=== PATIENT | male | born 1965 | race Caucasian/White ===

== ENCOUNTER 2016-08-27 16:54 | Emergency (ER) | payer OTHER ==
[2016-08-27 17:07] VITALS: RESP 18; TEMP 97.9
--- NOTE | 2016-08-27 17:39 | EDPHY ---
H & P Time Seen by Provider: 08/27/16 17:23 HPI/ROS: CHIEF COMPLAINT: Right knee pain HISTORY OF PRESENT ILLNESS: Patient is a 51-year-old male who injured his right knee while skiing yesterday. The patient states he was skiing moles and stop to rest. He leaned over to his side. He felt a pop on the lateral aspect of his right knee. He had moderate pain. He was able to ski the rest of the day. Today he has increased pain with movement of his right knee. He also noticed significant swelling on the superior medial aspect of his right knee. He has no numbness or tingling. No previous knee surgery. REVIEW OF SYSTEMS: My complete review of systems is negative except as mentioned in the HPI. Past Medical/Surgical History: GERD, Celiac DZ Smoking Status: Never smoked Physical Exam: General Appearance: Alert and no distress. Head: Pupils equal. Normal. Respiratory: No respiratory distress. Cardiac: regular rate and rhythm. Extremities: patient has swelling and and a superior medial aspect of his right knee. There is no patellar tenderness or deformity. Patient has tenderness to palpation on the lateral aspect of his right knee. Patient has discomfort with stress of his lateral collateral ligament. There is mild laxity. No ACL or PCL laxity. Neurovascularly intact distally Skin: No rashes or lesions. Neuro: Alert. Normal mood and affect. Constitutional: Initial Vital Signs Temperature (C) 36.6 C 08/27/16 17:05 Heart Rate 82 08/27/16 17:05 Respiratory Rate 18 08/27/16 17:05 Blood Pressure 121/95 H 08/27/16 17:05 O2 Sat (%) 96 08/27/16 17:05 O2 Delivery Mode Room Air Allergies/Adverse Reactions: cefuroxime axetil [From Ceftin] Allergy (Verified 08/27/16 17:07) sulfamethoxazole [From Bactrim] Allergy (Verified 08/27/16 17:07) trimethoprim [From Bactrim] Allergy (Verified 08/27/16 17:07) Home Medications: Medication Instructions Recorded Hydrocodone/APAP 5/325 [[place] 1 - 2 tab PO Q4 #13 tab 08/27/16 5/325 (RX)] Ondansetron HCl [Zofran] 4 mg PO 08/27/16 Potassium 99 mg PO 08/27/16 Medical Decision Making ED Course/Re-evaluation: I discussed the plan with the patient. I discussed possible etiologies and answered all his questions. An x-ray was ordered. The x-ray: Effusion. No fracture dislocation. I discussed the result with the patient. I answered all his questions. He is placed in a knee immobilizer. He was given crutches. He will be nonweightbearing until follow-up with Orthopedics. He will follow up with Orthopedics when he returns home to [place]. Differential Diagnosis: My differential includes but is not limited to fracture, dislocation, sprain, ligamentous disruption Departure - Departure Disposition: Home, Routine, Self-Care Clinical Impression: Right knee sprain Qualifiers: Encounter type: initial encounter Involved ligament of knee: lateral collateral ligament Qualified Code(s): S83.421A - Sprain of lateral collateral ligament of right knee, initial encounter Condition: Good Instructions: Knee Sprain (ED), Knee Immobilizer (ED) Additional Instructions: Your x-ray show no fracture dislocation. You to have an effusion. You need close follow-up with Orthopedics when he returns home. Referrals: [facility] [Other] - As per [facility]ructions [facility] [place] [Other] - 5-7 days, call for appt. Prescriptions: Hydrocodone/APAP 5/325 [[place] 5/325 (RX)] 1 - 2 tab PO Q4 #13 tab
[2016-08-27] MEDS ORDERED: HYDROCOD/APAP 5/325 PREPACK#6 BTL TAKEHOME ONE ×2 (19:15)
[2016-08-27 19:25] VITALS: BP 140/85; PULSE 80; O2SAT 95
== END 2016-08-27 19:26 | disposition home or self-care (01) ==
DX: S83.421A Sprain of lateral collateral ligament of right knee, initial encounter (principal); V00.328A Other snow-ski accident, initial encounter; Y99.8 Other external cause status; Y93.23 Activity, snow (alpine) (downhill) skiing, snowboarding, sledding, tobogganing and snow tubing
CPT/HCPCS: L1830

== ENCOUNTER 2017-10-03 14:56 | Inpatient (IN) | payer MEDICAID, OTHER ==
--- NOTE | 2017-10-03 14:59 | EDPHY ---
H & P Time Seen by Provider: 10/03/17 14:57 HPI/ROS: CHIEF COMPLAINT: Abdominal pain and vomiting HISTORY OF PRESENT ILLNESS: The patient presents to the ED by EMS with acute abdominal pain and vomiting. The patient complains of pain in the left lower quadrant. He reports a prior history of similar symptoms with diverticulitis. His last bout was 2 years ago. The patient denies any hematemesis or melena. He denies prior surgical history. The patient denies any fever, cough, congestion, hematuria or dysuria. The patient reports that his pain is moderate in nature. The patient tells me he has had chronic vomiting before in the past. He tells me that he had been abstinent from using marijuana. He reports that it did not appear to change the frequency of his chronic vomiting. The patient is somewhat vague regarding his recent hospitalizations for vomiting. He states that he continues to have vomiting every few months. REVIEW OF SYSTEMS: A comprehensive 10 point review of systems is otherwise negative aside from elements mentioned in the history of present illness. Source: Patient Exam Limitations: No limitations - Medical/Surgical History Hx Asthma: Yes Hx Chronic Respiratory Disease: No Hx Diabetes: No Hx Cardiac Disease: No Hx Renal Disease: No Hx Cirrhosis: No Hx Alcoholism: No Hx HIV/AIDS: No Hx Splenectomy or Spleen Trauma: No Other PMH: GERD, CELIAC DX - Social History Smoking Status: Never smoked - Physical Exam Exam: General Appearance: Alert, appears uncomfortable Eyes: Pupils equal and round no pallor or injection ENT, Mouth: Mucous membranes moist Respiratory: There are no retractions, lungs are clear to auscultation Cardiovascular: Regular rate and rhythm Gastrointestinal: Tenderness to palpation left lower quadrant Neurological: 5/5 strength all 4 extremities Skin: Warm and dry, no rashes Musculoskeletal: Neck is supple nontender Extremities: symmetrical, full range of motion Constitutional: Initial Vital Signs Temperature (C) 36.4 C 10/03/17 14:57 Heart Rate 81 10/03/17 14:57 Respiratory Rate 18 10/03/17 14:57 Blood Pressure 134/90 H 10/03/17 14:57 O2 Sat (%) 95 10/03/17 14:57 O2 Delivery Mode Room Air Allergies/Adverse Reactions: bee venom protein (honey bee) Allergy (Unverified 10/03/17 14:57) cefuroxime [From Ceftin] Allergy (Unverified 10/03/17 14:57) cefuroxime axetil [From Ceftin] Allergy (Verified 08/27/16 17:07) sulfamethoxazole [From Bactrim] Allergy (Verified 08/27/16 17:07) trimethoprim [From Bactrim] Allergy (Verified 08/27/16 17:07) Home Medications: Medication Instructions Recorded Hydrocodone/APAP 5/325 [[place] 1 - 2 tab PO Q4 #13 tab 08/27/16 5/325 (RX)] Ondansetron HCl [Zofran] 4 mg PO 08/27/16 Potassium 99 mg PO 08/27/16 Lexapro 10/03/17 Seroquel 10/03/17 Medical Decision Making - Diagnostics Imaging Results: Imaging Impressions Abdomen CT 10/03/17 15:49 Impression: 1. Mild colonic diverticulosis, with no CT evidence of diverticulitis, pericolonic fluid collection, mechanical obstruction, or pneumatosis. 2. Small central sliding hiatal hernia. 3. Mild hepatomegaly with accompanying steatosis. Findings were discussed with Job Lawson MD at 16:27, on 10/03/2017. ED Course/Re-evaluation: The patient presents to the ED with complaints of acute abdominal pain and vomiting. The patient reports his consistent with his prior episodes of diverticulitis. The patient had an IV established. He received 2 L of normal saline. He received IV Zofran and pain medications. The patient was noted to have a slight leukocytosis. Given his tenderness he was taken for an abdominal CT scan which demonstrates no evidence of obvious pathology. The patient underwent serial examinations over 4.5 hr period. At 7:30 p.m. He is feeling somewhat better however is having recurrent abdominal pain and nausea after drinking just water. This point time I do feel the patient should be admitted to the hospital for observation this evening. Consultation is made with Dr. Reno from the hospitalist service. The patient developed recurrent vomiting at 8:00 p.m.. He is given additional Ativan and Zofran. I am certainly suspicious that this may be more of a chronic cyclic vomiting. Given the patient's ongoing symptoms I do feel he needs to be admitted to the hospital. Differential Diagnosis: Differential diagnosis considered includes pancreatitis, cholecystitis, perforation, obstruction, dehydration, diverticulitis, metabolic abnormality - Data Points Laboratory Results: Laboratory Results 10/03/17 15:00 10/03/17 15:00 10/03/17 10/03/17 15:00 15:00 WBC 11.67 10^3/uL H 10^3/uL (3.80-9.50) RBC 4.96 10^6/uL 10^6/uL (4.40-6.38) Hgb 16.3 g/dL g/dL (13.7-17.5) Hct 45.9 % % (40.0-51.0) MCV 92.5 fL fL (81.5-99.8) MCH 32.9 pg pg (27.9-34.1) MCHC 35.5 g/dL g/dL (32.4-36.7) RDW 12.7 % % (11.5-15.2) Plt Count 242 10^3/uL 10^3/uL (150-400) MPV 10.2 fL fL (8.7-11.7) Neut % (Auto) 89.2 % H % (39.3-74.2) Lymph % (Auto) 6.5 % L % (15.0-45.0) [place] % (Auto) 3.5 % L % (4.5-13.0) Eos % (Auto) 0.0 % L % (0.6-7.6) Baso % (Auto) 0.3 % % (0.3-1.7) Nucleat RBC Rel Count 0.0 % % (0.0-0.2) Absolute Neuts (auto) 10.40 10^3/uL H 10^3/uL (1.70-6.50) Absolute Lymphs (auto) 0.76 10^3/uL L 10^3/uL (1.00-3.00) Absolute Monos (auto) 0.41 10^3/uL 10^3/uL (0.30-0.80) Absolute Eos (auto) 0.00 10^3/uL L 10^3/uL (0.03-0.40) Absolute Basos (auto) 0.04 10^3/uL 10^3/uL (0.02-0.10) Absolute Nucleated RBC 0.00 10^3/uL 10^3/uL (0-0.01) Immature Gran % 0.5 % % (0.0-1.1) Immature Gran # 0.06 10^3/uL 10^3/uL (0.00-0.10) Sodium 143 mEq/L mEq/L (135-145) Potassium 3.7 mEq/L mEq/L (3.5-5.2) Chloride 106 mEq/L mEq/L (97-110) Carbon Dioxide 18 mEq/l L mEq/l (22-31) Anion Gap 19 mEq/L H mEq/L (8-16) BUN 11 mg/dL mg/dL (7-23) Creatinine 1.0 mg/dL mg/dL (0.7-1.3) Estimated GFR > 60 Glucose 135 mg/dL H mg/dL (70-100) Calcium 9.5 mg/dL mg/dL (8.5-10.4) Total Bilirubin 0.8 mg/dL mg/dL (0.1-1.4) Conjugated Bilirubin 0.4 mg/dL mg/dL (0.0-0.5) Unconjugated Bilirubin 0.4 mg/dL mg/dL (0.0-1.1) AST 28 IU/L IU/L (17-59) ALT 41 IU/L IU/L (21-72) Alkaline Phosphatase 156 IU/L H IU/L (38-126) Total Protein 7.7 g/dL g/dL (6.3-8.2) Albumin 4.5 g/dL g/dL (3.5-5.0) Lipase 58 IU/L IU/L (23-300) Medications Given: Discontinued Medications Fentanyl (Sublimaze) 100 mcg IVP EDNOW ONE Stop: 10/03/17 15:11 Last Admin: 10/03/17 15:26 Dose: 100 mcg Sodium Chloride (Ns) 1,000 mls @ 0 mls/hr IV EDNOW ONE; Wide Open PRN Reason: Protocol Stop: 10/03/17 15:11 Last Admin: 10/03/17 15:25 Dose: 1,000 mls Sodium Chloride (Ns) 1,000 mls @ 0 mls/hr IV EDNOW ONE; Wide Open PRN Reason: Protocol Stop: 10/03/17 19:49 Last Admin: 10/03/17 20:02 Dose: 1,000 mls Lorazepam (Ativan Injection) 1 mg IVP EDNOW ONE Stop: 10/03/17 19:49 Last Admin: 10/03/17 19:59 Dose: 1 mg Ondansetron HCl (Zofran) 4 mg IVP EDNOW ONE Stop: 10/03/17 15:11 Last Admin: 10/03/17 15:26 Dose: 4 mg Ondansetron HCl (Zofran) 4 mg IVP EDNOW ONE Stop: 10/03/17 19:49 Last Admin: 10/03/17 19:59 Dose: 4 mg Departure - Departure Disposition: [facility] Clinical Impression: Vomiting, Dehydration, Cyclic vomiting syndrome Condition: Good
[2017-10-03] MEDS ORDERED: fentaNYL 100 MCG/2 ML INJ IVP ONE (15:10)
[2017-10-03] MEDS ORDERED: ONDANSETRON 4 MG/2 ML VIAL IVP ONE ×2 (15:10→19:48)
[2017-10-03] MEDS ORDERED: NS 1,000 ML IV ONE ×2 (15:10→19:48)
[2017-10-03 15:20] LABS: PLATELET COUNT 242 10^3/uL (150-400)
[2017-10-03] MEDS ORDERED: IOPAMIDOL (ISOVUE-300) 100 ML BTL ONE (15:53)
[2017-10-03] MEDS ORDERED: LORazepam 2 MG/ML INJ IVP ONE (19:48)
[2017-10-03] MEDS ORDERED: PROMETHAZINE HCL 25 MG TAB PO PRN (20:49)
[2017-10-03] MEDS ORDERED: LORazepam 0.5 MG TAB PO PRN (20:49)
[2017-10-03] MEDS ORDERED: PROMETHAZINE HCL 25 MG/ML INJ IVP PRN (20:49)
--- NOTE | 2017-10-03 21:54 | PDGENHP ---
History and Physical - Chief Complaint Acute abdominal pain - History of Present Illness Primary care provider: None HPI: 52-year-old male presenting with acute abdominal pain characterized as very similar symptoms to what he experienced approximately 2 years ago when he had intractable abdominal pain with associated vomiting. Location is diffusely throughout his abdomen. The patient reports that symptom onset was 11:00 a.m., 2 days prior, and duration has been persistent and worsening thereafter. Has been associated with vomiting and has resulted in inability to tolerate oral intake. Pain has been somewhat alleviated by the pain and antiemetic medications he received in the emergency department. He is currently experiencing thirst and would like to trial some oral liquids. History Information - Allergies/Home Medication List Allergies/Adverse Reactions: cefuroxime [From Ceftin] Allergy (Severe, Unverified 10/03/17 20:43) Anaphylaxis bee venom protein (honey bee) Allergy (Unverified 10/03/17 14:57) cefuroxime axetil [From Ceftin] Allergy (Verified 10/03/17 20:43) sulfamethoxazole [From Bactrim] Allergy (Verified 10/03/17 20:43) trimethoprim [From Bactrim] Allergy (Verified 10/03/17 20:43) Home Medications: Escitalopram Oxalate [Lexapro] 20 mg PO DAILY 10/03/17 [Last Taken 10/03/17] Herbals/Supplements -Info Only 1 ea PO DAILY 10/03/17 [Last Taken Unknown] QUEtiapine FUMARATE [Seroquel 100 mg (*)] 100 mg PO HS 10/03/17 [Last Taken 09/16] I have personally reviewed and updated: family history, medical history, social history, surgical history - Past Medical History Additional medical history: Gastroesophageal reflux disease. Reported celiac disease, unclear how the diagnosis was reached. Chronic abdominal pain symptoms , of unclear etiology, patient reports symptoms persisted despite discontinuing marijuana for 2 months - Surgical History Additional surgical history: Inguinal hernia repair. Last colonoscopy 4 years ago with polyp removal - Family History Additional family history: Father with reported celiac disease - Social History Smoking Status: Never smoked Alcohol Use: Rarely Drug Use: Marijuana (Regularly) Additional social history: Patient reports he is currently relocating to [place] , historically from [place] Review of Systems Review of Systems: ROS: 10pt was reviewed & negative except for what was stated in HPI & below Gastrointestinal: Reports: vomitting, abdominal pain Physical Exam Physical Exam: Temp Pulse Resp BP Pulse Ox 36.6 C 83 18 145/96 H 92 10/03/17 20:46 10/03/17 20:46 10/03/17 20:46 10/03/17 20:46 10/03/17 20:46 Constitutional: no apparent distress, appears nourished, not in pain, other ( Resting very comfortably), No uncomfortable Eyes: PERRL, anicteric sclera, EOMI Ears, Nose, Mouth, Throat: moist mucous membranes, hearing normal, ears appear normal, no oral mucosal ulcers Cardiovascular: regular rate and rhythym, no murmur, rub, or gallop, No edema Respiratory: no respiratory distress, no rales or rhonchi, clear to auscultation Gastrointestinal: normoactive bowel sounds, soft, non-tender abdomen, no palpable masses, No distension Genitourinary: no bladder fullness, no bladder tenderness Neurologic: AAOx3, sensation intact bilaterally, other (Lethargic but arousable to tactile stimulation), No weakness Psychiatric: interacting appropriately, not anxious, not encephalopathic, thought process linear, other Lab Data & Imaging Review 10/03/17 15:00 10/03/17 15:00 WBC 11.67 10^3/uL (3.80-9.50) H 10/03/17 15:00 RBC 4.96 10^6/uL (4.40-6.38) 10/03/17 15:00 Hgb 16.3 g/dL (13.7-17.5) 10/03/17 15:00 Hct 45.9 % (40.0-51.0) 10/03/17 15:00 MCV 92.5 fL (81.5-99.8) 10/03/17 15:00 MCH 32.9 pg (27.9-34.1) 10/03/17 15:00 MCHC 35.5 g/dL (32.4-36.7) 10/03/17 15:00 RDW 12.7 % (11.5-15.2) 10/03/17 15:00 Plt Count 242 10^3/uL (150-400) 10/03/17 15:00 MPV 10.2 fL (8.7-11.7) 10/03/17 15:00 Neut % (Auto) 89.2 % (39.3-74.2) H 10/03/17 15:00 Lymph % (Auto) 6.5 % (15.0-45.0) L 10/03/17 15:00 [place] % (Auto) 3.5 % (4.5-13.0) L 10/03/17 15:00 Eos % (Auto) 0.0 % (0.6-7.6) L 10/03/17 15:00 Baso % (Auto) 0.3 % (0.3-1.7) 10/03/17 15:00 Nucleat RBC Rel Count 0.0 % (0.0-0.2) 10/03/17 15:00 Absolute Neuts (auto) 10.40 10^3/uL (1.70-6.50) H 10/03/17 15:00 Absolute Lymphs (auto) 0.76 10^3/uL (1.00-3.00) L 10/03/17 15:00 Absolute Monos (auto) 0.41 10^3/uL (0.30-0.80) 10/03/17 15:00 Absolute Eos (auto) 0.00 10^3/uL (0.03-0.40) L 10/03/17 15:00 Absolute Basos (auto) 0.04 10^3/uL (0.02-0.10) 10/03/17 15:00 Absolute Nucleated RBC 0.00 10^3/uL (0-0.01) 10/03/17 15:00 Immature Gran % 0.5 % (0.0-1.1) 10/03/17 15:00 Immature Gran # 0.06 10^3/uL (0.00-0.10) 10/03/17 15:00 Sodium 143 mEq/L (135-145) 10/03/17 15:00 Potassium 3.7 mEq/L (3.5-5.2) 10/03/17 15:00 Chloride 106 mEq/L (97-110) 10/03/17 15:00 Carbon Dioxide 18 mEq/l (22-31) L 10/03/17 15:00 Anion Gap 19 mEq/L (8-16) H 10/03/17 15:00 BUN 11 mg/dL (7-23) 10/03/17 15:00 Creatinine 1.0 mg/dL (0.7-1.3) 10/03/17 15:00 Estimated GFR > 60 10/03/17 15:00 Glucose 135 mg/dL (70-100) H 10/03/17 15:00 Calcium 9.5 mg/dL (8.5-10.4) 10/03/17 15:00 Total Bilirubin 0.8 mg/dL (0.1-1.4) 10/03/17 15:00 Conjugated Bilirubin 0.4 mg/dL (0.0-0.5) 10/03/17 15:00 Unconjugated Bilirubin 0.4 mg/dL (0.0-1.1) 10/03/17 15:00 AST 28 IU/L (17-59) 10/03/17 15:00 ALT 41 IU/L (21-72) 10/03/17 15:00 Alkaline Phosphatase 156 IU/L (38-126) H 10/03/17 15:00 Total Protein 7.7 g/dL (6.3-8.2) 10/03/17 15:00 Albumin 4.5 g/dL (3.5-5.0) 10/03/17 15:00 Lipase 58 IU/L (23-300) 10/03/17 15:00 Visualized and Interpreted imaging results: Yes Interpretation: CT of the abdomen demonstrating diverticulosis but no diverticulitis, hiatal hernia, hepatic steatosis Assessment & Plan Assessment: 52-year-old male presenting with acute abdominal pain and vomiting, inability to tolerate oral intake Plan: 1. Intractable vomiting and abdominal pain. Acute, new problem this provider, further workup indicated. Potential etiologies include cannabis hyperemesis syndrome versus chronic pain syndrome versus gastritis -reviewed outside records including 08/27/2016, emergency department for by Dr. Namita Jack, patient's only encounter in our system, for knee sprain, prescribed opiate pain medication, listed as having GERD and celiac disease per patient report -currently keeping patient on bowel rest with clear liquid diet, advance tomorrow morning to light diet if condition improving -treat supportively with IV fluids -attempt to avoid opiates, treat with antiemetics -continue monitor chemistries replete electrolytes as needed -leukocytosis most likely stress response, recheck CBC in a.m. To ensure white blood cell count is down trended -I suspect this is an acute worsening of a chronic condition, and it sounds like the patient may have had previous conversations with previous providers regarding the possible association with marijuana, the patient does not seem open to changing his marijuana use as he has not experienced substantial benefit from doing so in the past -given the possibility of gastritis or esophagitis as a contributing cause with his hiatal hernia on CT, give full-dose pantoprazole twice daily x1 month and gauge effect 2. Suspected hepatic steatosis. Elevated alk-phos level, steatosis on CT, unlikely that patient's current complaints are secondary to biliary pathology Diet. Clears, advance tomorrow if tolerated Prophylaxis. Low risk, SCDs Code. Full Disposition. Anticipated discharge 10/04, pending stabilization of condition as outlined above. Discussed patient's presentation with Dr. Keith Lawson in the emergency department , he reports to me that the patient has not passed his p. O. A challenge in the ED and requires ongoing IV fluids and supportive care as outlined above.
[2017-10-03] MEDS: NS W/ 20 KCl/L 1,000 ML IV SCH (22:23)
[2017-10-03] MEDS: QUEtiapine FUMARATE 100 MG TAB PO SCH (22:25)
[2017-10-03] MEDS: ONDANSETRON DISINTEGRATING 4 MG TAB PO PRN (22:25)
[2017-10-04 05:56] LABS: PLATELET COUNT 225 10^3/uL (150-400)
[2017-10-04] MEDS: ESCITALOPRAM OXALATE 10 MG TAB PO SCH (08:01)
[2017-10-04] MEDS: NS W/ 20 KCl/L 1,000 ML IV SCH ×2 (08:09→18:06)
[2017-10-04] MEDS ORDERED: Herbals/Supplements -Info Only PO SCH (09:00)
[2017-10-04] MEDS: ONDANSETRON DISINTEGRATING 4 MG TAB PO PRN ×3 (11:21→19:48)
--- NOTE | 2017-10-04 14:24 | ASMTCMCOM ---
CM Note CM Note Notes: Spoke w/RN, states pt is here in [place] for work when he became ill and came to the hospital. Pt is otherwise independent and will dc home when medically stable. CM availble for any changes. DC Plan: Independent Date Signed: 10/04/2017 02:23 PM Electronically Signed By:Laureen Camilo RN
--- NOTE | 2017-10-04 16:10 | HOSPPROG ---
Hospitalist Progress Note Assessment/Plan: 52-year-old male presenting with acute abdominal pain and vomiting, inability to tolerate oral intake. First encounter, chart reviewed. D/W RN. Plan: # Intractable vomiting and abdominal pain. -Potential etiologies include cannabis hyperemesis syndrome versus chronic pain syndrome versus gastritis -currently keeping patient on bowel rest with clear liquid diet, advance tomorrow morning to light diet if condition improving -treat supportively with IV fluids -attempt to avoid opiates, treat with antiemetics -continue monitor chemistries replete electrolytes as needed -leukocytosis most likely stress response, resolved. -given the possibility of gastritis or esophagitis as a contributing cause with his hiatal hernia on CT, give full-dose pantoprazole twice daily x1 month and gauge effect # Suspected hepatic steatosis. Elevated alk-phos level, steatosis on CT, unlikely that patient's current complaints are secondary to biliary pathology #Diet. Clears, advance tomorrow if tolerated #Prophylaxis. Low risk, SCDs Code. Full Disposition. Change to inpatient as he is unable to tolerate PO intake Subjective: Still having nausea and discomfort. Unable to tolerate oral intake. Objective: Vital Signs Temp Pulse Resp BP Pulse Ox 36.9 C 70 18 145/94 H 94 10/04/17 15:29 10/04/17 15:29 10/04/17 15:29 10/04/17 15:29 10/04/17 15:29 Laboratory Results 10/04/17 05:12 10/04/17 05:12 10/03/17 10/04/17 10/05/17 05:59 05:59 05:59 Intake Total 1250 Output Total 50 Balance 1200 - Physical Exam Constitutional: appears nourished, not in pain, uncomfortable Eyes: PERRL, anicteric sclera, EOMI Ears, Nose, Mouth, Throat: moist mucous membranes, hearing normal, ears appear normal Cardiovascular: regular rate and rhythym, No JVD, No tachycardia Respiratory: no respiratory distress, no rales or rhonchi, clear to auscultation Gastrointestinal: tenderness, No normoactive bowel sounds, No ascites Skin: warm, normal color, No erythema Musculoskeletal: normal joint ROM, no joint effusions, generalized weakness Neurologic: AAOx3 Psychiatric: not anxious, not encephalopathic, thought process linear ICD10 Worksheet Patient Problems: Problems Problem Status Onset Vomiting Acute Dehydration Acute Cyclic vomiting syndrome Acute
[2017-10-04] MEDS: ACETAMINOPHEN 325 MG TAB PO PRN (17:59)
--- NOTE | 2017-10-04 19:42 | PDMN ---
Medical Necessity Medical necessity: M370 vomiting A-1 day: abd pain and persistent vomiting inability to maintain PO intake, ongoing IV fluids, monitoring and tx needed > 2 midnights
[2017-10-04] MEDS: QUEtiapine FUMARATE 100 MG TAB PO SCH (19:48)
[2017-10-05] MEDS: ONDANSETRON DISINTEGRATING 4 MG TAB PO PRN ×2 (03:44→20:12)
[2017-10-05] MEDS: ONDANSETRON 4 MG/2 ML VIAL IVP PRN ×2 (09:28→14:17)
[2017-10-05] MEDS: ESCITALOPRAM OXALATE 10 MG TAB PO SCH (10:01)
[2017-10-05] MEDS: ACETAMINOPHEN 325 MG TAB PO PRN (10:02)
--- NOTE | 2017-10-05 14:30 | HOSPPROG ---
Hospitalist Progress Note Assessment/Plan: 52-year-old male presenting with acute abdominal pain and vomiting, inability to tolerate oral intake. Plan: # Intractable vomiting and abdominal pain. - unclear etiol -not tolerating PO -treat supportively with IV fluids -keep NPO -consult GI, possible EGD. D/W Dr ji -attempt to avoid opiates, treat with antiemetics -continue monitor chemistries replete electrolytes as needed -leukocytosis most likely stress response, resolved. # Suspected hepatic steatosis. Elevated alk-phos level, steatosis on CT, unlikely that patient's current complaints are secondary to biliary pathology #Diet. NPO #Prophylaxis. Low risk, SCDs Code. Full Disposition. Change to inpatient as he is unable to tolerate PO intake Subjective: Still having N/V. Pain better. Had BM today. Objective: Vital Signs Temp Pulse Resp BP Pulse Ox 36.7 C 62 12 135/91 H 94 10/05/17 08:00 10/05/17 08:00 10/05/17 08:00 10/05/17 08:00 10/05/17 08:00 Laboratory Results 10/04/17 05:12 10/04/17 05:12 10/04/17 10/05/17 10/06/17 05:59 05:59 05:59 Intake Total 1250 550 Output Total 50 1400 2040 Balance 1200 -850 -2039 - Physical Exam Constitutional: appears nourished, not in pain, uncomfortable Eyes: PERRL, anicteric sclera, EOMI Ears, Nose, Mouth, Throat: moist mucous membranes, hearing normal, ears appear normal Cardiovascular: tachycardia, No JVD, No edema Respiratory: no respiratory distress, no rales or rhonchi, clear to auscultation Gastrointestinal: No normoactive bowel sounds, No tenderness, No ascites, No guarding Skin: warm, normal color, No erythema Musculoskeletal: normal joint ROM, no joint effusions, generalized weakness Neurologic: AAOx3 Psychiatric: interacting appropriately, not anxious, not encephalopathic, thought process linear ICD10 Worksheet Patient Problems: Problems Problem Status Onset Vomiting Acute Dehydration Acute Cyclic vomiting syndrome Acute
--- NOTE | 2017-10-05 16:08 | PDANEPAE ---
ANE History of Present Illness EGD ANE Past Medical History - Pulmonary History Hx Asthma/Reactive Airway Disease: Yes Hx Oxygen in Use at Home: No Hx Sleep Apnea: No Sleep Apnea Screening Result - Last Documented: Positive - Endocrine History Hx Diabetes: No - GI History GERD: mild - Chronic Pain History Chronic Pain: No ANE Review of Systems Review of systems is: negative Review of Systems: - Exercise capacity Exercise capacity: >=4 METS ANE Patient History - Allergies Allergies/Adverse Reactions: cefuroxime [From Ceftin] Allergy (Severe, Verified 10/04/17 11:21) Anaphylaxis bee venom protein (honey bee) Allergy (Verified 10/04/17 11:21) cefuroxime axetil [From Ceftin] Allergy (Verified 10/03/17 20:43) gluten Allergy (Verified 10/05/17 15:43) sulfamethoxazole [From Bactrim] Allergy (Verified 10/03/17 20:43) trimethoprim [From Bactrim] Allergy (Verified 10/03/17 20:43) - Home Medications Home medications: home medication list seen and reviewed Home Medications: Escitalopram Oxalate [Lexapro] 20 mg PO DAILY 10/03/17 [Last Taken 10/03/17] Herbals/Supplements -Info Only 1 ea PO DAILY 10/03/17 [Last Taken Unknown] QUEtiapine FUMARATE [Seroquel 100 mg (*)] 100 mg PO HS 10/03/17 [Last Taken 09/16] - NPO status NPO Status: no food or drink >8 hours NPO Since - Liquids (Date): 10/05/17 NPO Since - Liquids (Time): 09:00 NPO Since - Solids (Date): 10/05/17 NPO Since - Solids (Time): 09:00 - Anes Hx Anes Hx: no prior problems - Smoking Hx Smoking Status: Never smoked Marijuana use: Yes - Alcohol Use Alcohol Use: Rarely - Family Anes Hx Family Anes Hx: none ANE Labs/Vital Signs - Labs Result Diagrams: 10/04/17 05:12 10/04/17 05:12 - Vital Signs Blood Pressure: 135/91 Heart Rate: 62 Respiratory Rate: 12 O2 Sat (%): 94 Height: 182.88 cm Weight: 79.379 kg ANE Physical Exam - Airway Neck exam: FROM Mallampati Score: Class 1 Mouth exam: normal dental/mouth exam - Pulmonary Pulmonary: no respiratory distress - Cardiovascular Cardiovascular: regular rate and rhythym - ASA Status ASA Status: II ANE Anesthesia Plan Total IV Anesthesia: Yes
[2017-10-05] MEDS ORDERED: LR 1,000 ML IV ONE (16:17)
--- NOTE | 2017-10-05 16:18 | SOAPPROG ---
SOAP Progress Note Assessment/Plan: Assessment:Plan: see full dictated consult query cyclical vomiting syndrome says he has hx Cota's, celiac dz and gastroparesis needs EGD Magen Anguiano 10/05/17 16:17 Objective: Vital Signs Temp Pulse Resp BP Pulse Ox 36.7 C 62 12 135/91 H 94 10/05/17 16:08 10/05/17 16:14 10/05/17 16:14 10/05/17 16:14 10/05/17 16:14 Laboratory Results 10/04/17 05:12 10/04/17 05:12 10/04/17 10/05/17 10/06/17 05:59 05:59 05:59 Intake Total 1250 550 Output Total 50 1400 2040 Balance 1200 -850 -2040 ICD10 Worksheet Patient Problems: Problems Problem Status Onset Cyclic vomiting syndrome Acute Dehydration Acute Vomiting Acute
[2017-10-05] MEDS ORDERED: PROPOFOL/EMULSION 500 MG/50 ML BOTTLE IV ONE (16:22)
[2017-10-05] MEDS ORDERED: fentaNYL 100 MCG/2 ML INJ IVP PRN (16:44)
[2017-10-05] MEDS ORDERED: NALOXONE HCL 0.4 MG/ML INJ IVP PRN (16:44)
[2017-10-05] MEDS ORDERED: oxyCODONE IR 5 MG TAB PO PRN (16:44)
[2017-10-05] MEDS ORDERED: DEXAMETHASONE 4 MG/ML VIAL IVP PRN (16:44)
[2017-10-05] MEDS ORDERED: ONDANSETRON 4 MG/2 ML VIAL IVP PRN (16:44)
[2017-10-05] MEDS ORDERED: LABETALOL HCL 5 MG/ML 20 ML MDV IVP PRN (16:44)
[2017-10-05] MEDS ORDERED: HYDROCODONE/APAP 5/325 TAB PO PRN (16:44)
[2017-10-05] MEDS ORDERED: ACETAMINOPHEN 500 MG TAB PO PRN (16:44)
[2017-10-05] MEDS ORDERED: ALBUTEROL 3 ML DEYVIAL IH PRN (16:44)
[2017-10-05] MEDS ORDERED: 1/2 NS 1,000 ML IV SCH (16:45)
--- NOTE | 2017-10-05 16:45 | POSTANESTH ---
Post Anesthetic Evaluation Cardiovascular Status: Normal, Stable, Similar to Pre-Op Cond Respiratory Status: Normal, Stable, Similar to Pre-op Cond. Level of Consciousness/Mental Status: Can Participate in Eval, Mildly Sleepy, Arousable Pain Control: Adequate, Prn Tx Ordered Nausea/Vomiting Control: Adequate, Prn Tx Ordered Complications Possibly Related to Anesthesia: None Noted
--- NOTE | 2017-10-05 16:47 | GIREPORT ---
[facility] Surgical Services - Endoscopy Department Patient Name: Thomas Caldwell Procedure Date: 10/05/2017 4:07 PM Patient Type: Inpatient Attending MD/ ER Physician: Dania Alcaraz Procedure: Upper GI endoscopy Indications: Celiac disease, Nausea with vomiting Providers: Patricio Anguiano MD Medicines: Total IV Anesthesia (TIVA) = IV general Complications: No immediate complications. Estimated blood loss: Minimal. Description of Procedure: After obtaining informed consent, the endoscope was passed under direct vision. Throughout the procedure, the patient's blood pressure, pulse, and oxygen saturations were monitored continuously. The Endoscope was intro duced through the mouth, and advanced to the third part of duodenum. The uppe r GI endoscopy was accomplished without difficulty. The patient tolerated th e procedure well. Findings: LA Grade A (one or more mucosal breaks less than 5 mm, not extending be tween tops of 2 mucosal folds) esophagitis with no bleeding was found in the lower third of the esophagus. Biopsies were taken with a cold forceps for histology. A medium-sized hiatal hernia was present. A small amount of food (residue) was found on the greater curvature of the stomach. Diffuse moderately erythematous mucosa without bleeding was found in th e gastric antrum. Biopsies were taken with a cold forceps for histology. Estimated blood loss was minimal. A single localized erosion without bleeding was found in the duodenal b ulb. Diffuse moderate mucosal changes characterized by congestion, discolora tion, erythema and altered texture were found in the entire duodenum. Biopsie s for histology were taken with a cold forceps for evaluation of celiac disea se. Estimated blood loss was minimal. The exam was otherwise without abnormality. Estimated Blood Loss: Estimated blood loss was minimal. Post Op Diagnosis: - LA Grade A reflux esophagitis. Biopsied. - Medium-sized hiatal hernia. - A small amount of food (residue) in the stomach. - Erythematous mucosa in the antrum. Biopsied. - Duodenal erosion without bleeding. - Mucosal changes in the duodenum. Biopsied. - The examination was otherwise normal. Recommendation: - Await pathology results. - My office will call with the pathology result with 5-7 days. If you h ave not heard from my office by 12-14, do not assume the pathology is fritz l, please call [phone] to get the pathology results. - Follow an antireflux regimen. - Use Protonix (pantoprazole) 40 mg PO daily for 8 weeks. Take 30-60 mi nutes before breakfast - Use Zantac (ranitidine) 300 mg PO at bedtime for 4 weeks. - Return patient to [facility] for [facility] care. - Thank you for allowing me to help in your patient's care. Do not hesi aj to call with any questions. Attending Participation: I personally performed the entire procedure. Annmarie Curry M.D Patricio Anguiano MD 10/05/2017 4:46:55 PM This report has been signed electronicallyMathew MD Annmarie Number of Addenda: 0 Note Initiated On: 10/05/2017 4:07 PM [email or web address]
--- NOTE | 2017-10-05 18:49 | GCON ---
[f rep st] CONSULTATION DATE OF CONSULTATION: 10/05/2017 REQUESTING PHYSICIAN: Merline Jorgensen NP REASON FOR CONSULTATION: Nausea, vomiting. HISTORY OF PRESENT ILLNESS: The patient is a very pleasant 52-year-old male with past medical histor y significant for celiac sprue, hiatal hernia, gastroparesis, who has episodes of significant nausea and vomiting that become debilitating. In between these episodes, he has no significant symptoms. W hen they occur, he has nausea, vomiting that he cannot control. One of these episodes was associated with diverticulitis, however, the others have not been. He does complain of acid reflux symptoms. He says he carries a diagnosis of Cota's, but it is not clear if that is true. He did have a colo noscopy not long ago, which we are going to try to obtain, from [place], [place]. He was admit rylee for his nausea, vomiting, and I have been called to help and evaluate and treat in that regard. PAST MEDICAL HISTORY: Reflux disease, celiac sprue, intermittent nausea, vomiting, history of divert iculitis. He also has history of depression. PAST SURGICAL HISTORY: Includes knee surgery in January of 2017, left inguinal hernia, and the basal cells have been removed. FAMILY HISTORY: Supposedly has celiac disease in his father. MEDICATIONS: At home include Lexapro 20 mg daily, Seroquel 100 mg p.o. q.h.s., and some herbal suppl ements. ALLERGIES: Ceftin and Bactrim which cause anaphylactic shock. He also is allergic to bee venom. SOCIAL HISTORY: He drinks occasional alcohol. He does not smoke tobacco. REVIEW OF SYSTEMS: A complete review of systems is performed, is negative other than noted in the HP I. Pertinent negatives include no dysphagia, odynophagia. No chest pain, palpitations, diaphoresis. No diarrhea. No hematochezia. No hematemesis. PHYSICAL EXAMINATION: GENERAL: Well-developed, well-nourished male sitting in his bed, in no acute distress. VITAL SIGNS: His blood pressure is 137/108, his pulse is 82, his respirations are 18, he is 94% on room air, temperature is 36.8. HEENT: Eyes: Anicteric, MIGUEL, EOMI. Mouth: No lesions, moist membranes. NECK: Supple. Full range of motion. No JVD. BACK: No spine tenderness. No CVA tenderness. LUNGS: Clear to auscultation. CARDIAC: S1, S2. Regular rate and rhythm. No murmurs , rubs or gallops appreciated. ABDOMEN: Bowel sounds are normal in pitch and frequency. ABDOMEN: Soft with some epigastric tenderness. No rebound, no guarding, no hepatosplenomegaly. EXTREMITIES: No cyanosis, clubbing, or edema. NEUROLOGIC: Cranial nerves intact, nonfocal. SKIN: No stigmata of advanced liver disease. No rashes. LABORATORY DATA: From October 04: WBC 7.56, hemoglobin 14.0, hematocrit 40.7, platelet count 225. S odium 146, potassium 4.0, chloride 113, bicarb 21, BUN 9, creatinine 0.8, glucose 87, calcium 8.9, to geeta bilirubin 0.5, AST 19, ALT 32, alkaline phosphatase 114, total protein 6.5, albumin 3.5. From October 03: Lipase is 58. He had abdominal CT scan performed on October 03, mild colonic diverti culosis with no CT evidence of diverticulitis. Small central sliding hiatal hernia. Mild hepatomega ly with accompanying steatosis. Gallbladder appears normal. There are no stones. Biliary ducts are normal. Pancreas is normal. Spleen is normal. ASSESSMENT: 1. Nausea, vomiting, which is intermittent with no symptoms in between, which raises the possibility of cyclical vomiting syndrome. 2. Acid reflux. 3. Questionable history of Cota's. 4. Probable history of celiac sprue. 5. Possible history of gastroparesis. 6. Diverticulosis. RECOMMENDATIONS: 1. EGD for evaluation of above symptoms. 2. PPI q.a.m. and H2RA q.h.s. 3. Antireflux, lifestyle changes. 4. Obtain previous colonoscopy from [facility]. Patient will likely see us as an outpatient, we can obtain it at that point. He said there were a few polyps removed. 5. Continue Lexapro and Seroquel. 6. Further recommendations to follow results of above and clinical course. Thank you for allowing me to participate in the patient's healthcare. Please do not hesitate to call me with any questions. /[id number]/MODL
[2017-10-05] MEDS: QUEtiapine FUMARATE 100 MG TAB PO SCH (21:38)
[2017-10-06] MEDS: ESCITALOPRAM OXALATE 10 MG TAB PO SCH (09:12)
[2017-10-06] MEDS ORDERED: PANTOPRAZOLE SODIUM 40 MG TAB PO ONE (09:52)
--- NOTE | 2017-10-06 10:18 | SOAPPROG ---
SOAP Progress Note Assessment/Plan: Assessment/Plan: As per Dr. Anguiano's EGD report from yesterday. Agree with discharge. Thanks! 10/06/17 10:16 Subjective: cc: N/V Ate well, without nausea. No rigors, chills, sweats. Objective: Vital Signs Temp Pulse Resp BP Pulse Ox 36.6 C 69 16 131/94 H 96 10/06/17 07:37 10/06/17 07:37 10/06/17 07:37 10/06/17 07:37 10/06/17 07:37 Laboratory Results 10/04/17 05:12 10/06/17 05:05 10/05/17 10/06/17 10/07/17 05:59 05:59 05:59 Intake Total 550 2350 Output Total 1400 2040 Balance -850 310 Physical Exam - Physical Exam General Appearance: WD/WN, alert, no apparent distress EENT: PERRL/EOMI, normal ENT inspection, pharynx normal, TMs normal Neck: non-tender, full range of motion, supple, normal inspection Respiratory: chest non-tender, lungs clear, normal breath sounds Cardiac/Chest: normal peripheral pulses, regular rate, rhythm Peripheral Pulses: 2+: carotid (R), carotid (L), femoral (R), femoral (L), dorsalis-pedis (R), dorsalis-pedis (L) Abdomen: normal bowel sounds, non-tender, soft Male Genitalia: deferred Rectal: deferred Back: Normal inspection Skin: normal color, warm/dry Lymphatic: no adenopathy Extremities: normal range of motion, non-tender, normal inspection, normal capillary refill Neuro/Psych: no motor/sensory deficits, alert, normal mood/affect, oriented x 3 ICD10 Worksheet Patient Problems: Problems Problem Status Onset Cyclic vomiting syndrome Acute Dehydration Acute Vomiting Acute
--- NOTE | 2017-10-06 10:44 | ASMTCMCOM ---
CM Note CM Note Notes: Pt. to d/c independently today. Date Signed: 10/06/2017 10:44 AM Electronically Signed By:Annamarie Conrad LCSW
[2017-10-06 10:52] VITALS: BP 128/89
--- NOTE | 2017-10-06 13:56 | GDS ---
[f rep st] DISCHARGE SUMMARY DISCHARGE DIAGNOSES: 1. Nausea and vomiting. 2. Hiatal hernia. 3. Reflux esophagitis. 4. Hepatic steatosis. CONSULTATION: Gastroenterology. STUDIES AND PROCEDURES DONE: EGD. PHYSICAL EXAM: GENERAL: The patient is alert. VITAL SIGNS: Afebrile at 36.3, pulse 72, respirator y rate is 20, blood pressure is 128/89. He is saturating 94% on room air. I have seen and evaluated the patient on the day of discharge. HOSPITAL COURSE: The patient is a 52-year-old male, who presented to the emergency room with complai nts of abdominal pain and vomiting. He was evaluated and diagnosed with: 1. Intractable vomiting with abdominal pain. The etiology of this is unclear at the time of disposi tion. The patient may suffer from cyclic vomiting syndrome. He does admit to marijuana ingestion. He did receive a consultation from Gastroenterology during this hospitalization. EGD was performed, noting reflux esophagitis, as well as hiatal hernia. Biopsies were taken. The patient is tolerating a regular diet, has no further complaints of abdominal pain, and is eager to be discharged home. 2. Elevated liver enzymes. This was at the time of admission and has resolved. DISPOSITION: The patient will be discharged home independently. I have reviewed his care with Dr. Duglas West of Gastroenterology. DISCHARGE MEDICATIONS: He has been provided a prescription for Protonix, as well as Zantac. FOLLOW UP: Followup will be with his EGD biopsies. He will be notified in 5-7 days of the biopsy re sults. He will follow up with the primary care physician, as well as Gastroenterology as needed. I spent greater than 35 minutes in the care, coordination, and management of the patient's dispositio n. /[id number]/MODL
== END 2017-10-06 12:52 | disposition home or self-care (01) | DRG 392 ==
LOC: EDUNIT# → OBSVTOIN 19:38 → INTOOBSV 19:38 → UNDOADMOB 19:38 → F3E 20:37 → OBSVTOIN 10-04 16:12 → F3E 10-04 16:12 → UNDODISIN 10-06 12:52
PROVIDERS: ADMIT Internal Medicine; ATTEND Internal Medicine
DX: R11.10 Vomiting, unspecified (principal); R10.32 Left lower quadrant pain; R94.5 Abnormal results of liver function studies; K21.0 Gastro-esophageal reflux disease with esophagitis; K44.9 Diaphragmatic hernia without obstruction or gangrene
CPT/HCPCS: 96374; G0378; J2060; J2405; J2704; J3010; Q9967

== ENCOUNTER 2017-11-26 06:29 | Emergency (ER) | payer OTHER ==
[2017-11-26] MEDS ORDERED: NS 1,000 ML IV ONE ×2 (06:46→09:35)
[2017-11-26] MEDS ORDERED: PROMETHAZINE HCL 25 MG/ML INJ IVP ONE ×2 (06:46→09:02)
[2017-11-26 06:53] LABS: PLATELET COUNT 289 10^3/uL (150-400)
[2017-11-26] MEDS ORDERED: IPRATROPIUM/ALBUTEROL 3 ML DEYVIAL IH ONE (07:13)
--- NOTE | 2017-11-26 07:16 | EDPHY ---
H & P Time Seen by Provider: 11/26/17 07:00 HPI/ROS: CHIEF COMPLAINT: Vomiting HISTORY OF PRESENT ILLNESS: 52-year-old male with celiac disease and alcoholism presents with vomiting. He stopped drinking recently, but had several alcoholic beverages last evening. Immediately after drinking alcohol, he began having intractable vomiting. Unable to tolerate oral fluids since then. Associated with 2 loose bowel movements. No abdominal pain or fever. He also has a history of asthma and has been coughing more recently. REVIEW OF SYSTEMS: complete 10 point ROS negative except at noted in the HPI Past Medical/Surgical History: Celiac disease Alcoholism Social History: Heavy alcohol use Smoking Status: Never smoked Physical Exam: General Appearance: Alert, pleasant Eyes: Pupils equal and round, no conjunctival pallor or injection ENT, Mouth: Mucous membranes moist Neck: Normal inspection Respiratory: Bilateral inspiratory and expiratory wheezing Cardiovascular: Regular rate and rhythm Gastrointestinal: Abdomen is soft and nontender Neurological: A&O, nonfocal, normal gait Skin: Warm and dry Extremities: Normal inspection Psychiatric: Mood and affect normal Constitutional: Initial Vital Signs Temperature (C) 36.5 C 11/26/17 06:37 Heart Rate 73 11/26/17 06:37 Respiratory Rate 18 11/26/17 06:37 O2 Sat (%) 96 11/26/17 06:37 O2 Delivery Mode Room Air O2 (L/minute) 2 Allergies/Adverse Reactions: cefuroxime [From Ceftin] Allergy (Severe, Verified 11/26/17 06:39) Anaphylaxis bee venom protein (honey bee) Allergy (Verified 11/26/17 06:39) cefuroxime axetil [From Ceftin] Allergy (Verified 11/26/17 06:39) gluten Allergy (Verified 11/26/17 06:39) sulfamethoxazole [From Bactrim] Allergy (Verified 11/26/17 06:39) trimethoprim [From Bactrim] Allergy (Verified 11/26/17 06:39) Home Medications: Medication Instructions Recorded Escitalopram Oxalate [Lexapro] 20 mg PO DAILY 10/03/17 QUEtiapine FUMARATE [Seroquel 100 100 mg PO HS 10/03/17 mg (*)] Acetaminophen [Tylenol 325mg (*)] 650 mg PO Q4HRS PRN tab 10/06/17 Ondansetron Odt [Zofran Odt 4 mg 4 mg PO Q4HRS PRN #20 tab 10/06/17 (*)] Pantoprazole Sodium [Protonix 40mg 40 mg PO DAILY #60 tab 10/06/17 (*)] Ranitidine HCl [Zantac] 150 mg PO HS #60 tablet 10/06/17 Albuterol [Proventil Inhaler HFA 2 puffs IH QID PRN #1 mdi 11/26/17 (*)] Ondansetron Odt [Zofran Odt 4 mg 4 mg PO Q4 PRN #6 tab 11/26/17 (*)] Medical Decision Making ED Course/Re-evaluation: This patient presents with nausea, vomiting and diarrhea, consistent with gastroenteritis. I do not suspect a surgical abdomen, as abdomen is soft and nontender. He also has bronchospasm, related to asthma and increased pollen in the air. DuoNeb given with relief in bronchospasm. Lungs CTA after duoneb. IV normal saline 1 L and Phenergan 6.25 mg given for vomiting. Feels better after Phenergan, nausea has resolved. Ice chips given. [place] nauseated after ice chips. Zofran 4 mg IV given. Persistent nausea, Phenergan 6.25 mg IV and Ativan 0.5 mg IV given. Nausea resolved. Abdomen remained soft and nontender. Safe and stable for discharge home. Understands that he has had sedative medications, should not drive today, and needs to get a ride home. Differential Diagnosis: Differential diagnosis includes though it is not limited to appendicitis, cholecystitis, diverticulitis, pyelonephritis, bowel perforation, small bowel obstruction. - Data Points Laboratory Results: Laboratory Results 11/26/17 06:45 11/26/17 06:45 Medications Given: Discontinued Medications Albuterol/Ipratropium (Duoneb) 3 ml IH EDNOW ONE Stop: 11/26/17 07:14 Last Admin: 11/26/17 07:18 Dose: 3 ml Sodium Chloride (Ns) 1,000 mls @ 0 mls/hr IV EDNOW ONE; Wide Open PRN Reason: Protocol Stop: 11/26/17 06:47 Last Admin: 11/26/17 06:49 Dose: 1,000 mls Sodium Chloride (Ns) 1,000 mls @ 0 mls/hr IV ONCE ONE; Wide Open PRN Reason: Protocol Stop: 11/26/17 09:36 Last Admin: 11/26/17 09:46 Dose: 1,000 mls Lorazepam (Ativan Injection) 1 mg IVP EDNOW ONE Stop: 11/26/17 09:44 Last Admin: 11/26/17 09:52 Dose: 1 mg Ondansetron HCl (Zofran) 4 mg IVP EDNOW ONE Stop: 11/26/17 08:28 Last Admin: 11/26/17 08:32 Dose: 4 mg Promethazine HCl (Phenergan) 6.25 mg IVP ONCE ONE Stop: 11/26/17 06:47 Last Admin: 11/26/17 06:49 Dose: 6.25 mg Promethazine HCl (Phenergan) 6.25 mg IVP EDNOW ONE Stop: 11/26/17 09:03 Last Admin: 11/26/17 09:30 Dose: 6.25 mg Departure - Departure Disposition: Home, Routine, Self-Care Clinical Impression: Bronchospasm Vomiting Qualifiers: Vomiting type: unspecified Vomiting Intractability: non-intractable Nausea presence: with nausea Qualified Code(s): R11.2 - Nausea with vomiting, unspecified Condition: Good Instructions: Acute Nausea and Vomiting (ED) Additional Instructions: 1. Clear liquids for 24 hours. 2. Advance diet as tolerated. I suggest the BRAT diet to start: bananas, rice, applesauce and toast. 3. Return for worsening symptoms, persistent vomiting, abdominal pain, any concerns. Referrals: Justine Ahn MD [Medical Doctor] - As per Instructions Prescriptions: Albuterol [Proventil Inhaler HFA (*)] 2 puffs IH QID PRN #1 mdi PRN Reason: Short Of Breath/Dyspnea Ondansetron Odt [Zofran Odt 4 mg (*)] 4 mg PO Q4 PRN #6 tab PRN Reason: Nausea
[2017-11-26] MEDS: ONDANSETRON 4 MG/2 ML VIAL IVP ONE (08:32)
[2017-11-26] MEDS ORDERED: LORazepam 2 MG/ML INJ IVP ONE (09:43)
[2017-11-26 12:44] VITALS: BP 142/92
== END 2017-11-26 12:40 | disposition home or self-care (01) ==
DX: R11.2 Nausea with vomiting, unspecified (principal); J98.01 Acute bronchospasm; E86.9 Volume depletion, unspecified
CPT/HCPCS: 96374; G0480; J2060; J2405; J2550